=== PATIENT | female | born 1975 | race Caucasian/White ===

== ENCOUNTER 2017-08-07 08:19 | Emergency (ER) | payer MEDICAID ==
[~2017-08-07] VITALS: Ht 153.7 cm; Wt 74.4 kg
[2017-08-07 08:46] VITALS: BP 129/83
--- NOTE | 2017-08-07 08:52 | NUR ---
PT AA&OX4, EVEN AND STEADY GAIT; VSS; PT TO LOBBY AWAITING OPEN BED.
--- NOTE | 2017-08-07 11:02 | NUR ---
PATIENT BIB FAMILY C/O NAUSEA/VOMITING/DIARRHEA X YESTERDAY.SKIN IS PINK/WARM/DRY; AAOX4 WITH EVEN AND STEADY GAIT; LUNGS CLEAR BL; HR EVEN AND REGULAR; PT DENIES ANY FEVER, CP, SOB, OR COUGH AT THIS TIME; PATIENT STATES PAIN OF 10/10 AT THIS TIME;PATIENT POSITIONED FOR COMFORT; HOB ELEVATED; BEDRAILS UP X2; BED DOWN.ALL MONITORS IN PLACED; ER MD MADE AWARE OF PT STATUS.
--- NOTE | 2017-08-07 11:42 | NUR ---
PT SLEEPING AT THIS TIME;NO ACUTE DISTRESS NOTED;WILL CONTINUE TO MONITOR PT.
[2017-08-07] MEDS ORDERED: KETOROLAC 60 MG/2 ML VIAL IM ONE (12:15)
[2017-08-07] MEDS ORDERED: ONDANSETRON 4 MG ODT PO ONE (12:20)
[2017-08-07 13:21] VITALS: BP 111/73
--- NOTE | 2017-08-07 13:23 | NUR ---
Patient discharged with v/s stable. Written and verbal after care instructions given and explained. Patient alert, oriented and verbalized understanding of instructions. Ambulatory with steady gait. All questions addressed prior to discharge. ID band removed. Patient advised to follow up with PMD. Rx of IMMODIUM MOTRIN AND ZOFRAN given. Patient educated on indication of medication including possible reaction and side effects. Opportunity to ask questions provided and answered.
== END 2017-08-07 13:23 | disposition home or self-care (01) ==
LOC: MED 08:19
DX: R10.30 Lower abdominal pain, unspecified (principal); R11.2 Nausea with vomiting, unspecified; R19.7 Diarrhea, unspecified
CPT/HCPCS: 81002; 81025; 96372; 99283; J1885; S0119

== ENCOUNTER 2018-12-06 11:44 | Emergency (ER) | payer SELFPAY ==
[~2018-12-06] VITALS: Ht 152.4 cm; Wt 79.4 kg
[2018-12-06 12:38] VITALS: BP 158/65
--- NOTE | 2018-12-06 12:40 | NUR ---
ERMD AT BEDSIDE
--- NOTE | 2018-12-06 13:00 | NUR ---
C/O COUGH & SORE THROAT X 5 DAYS. PT DENIES N/V/D/FEVER. EXPIRATORY WHEEZES HEARD IN BILAT BASES. O2 SAT 100% RA, NO ACCESORY MUSCLE USE NOTED, BREATHING IS UNLABORED.SKIN IS PINK/WARM/DRY ALERT AND ANSWERING QUESTIONS APPROPRIATLY. HR EVEN AND REGULAR.
--- NOTE | 2018-12-06 13:05 | NUR ---
PT LEFT TO RADIOLOGY
--- NOTE | 2018-12-06 14:00 | NUR ---
DR QUESADA AT BEDSIDE
[2018-12-06] MEDS ORDERED: DEXAMETHASONE 10 MG/ML VIAL IM ONE (14:10)
[2018-12-06 14:30] VITALS: BP 102/66
--- NOTE | 2018-12-06 14:31 | NUR ---
Patient discharged with v/s stable. Written and verbal after care instructions given and explained. Patient alert, oriented and verbalized understanding of instructions. Ambulatory with steady gait. All questions addressed prior to discharge. ID band removed. Patient advised to follow up with PMD. Rx of ALBUTEROL, PREDNISONE, LORATADINE, AND TESSALON PERLES given. Patient educated on indication of medication including possible reaction and side effects. Opportunity to ask questions provided and answered.
== END 2018-12-06 14:31 | disposition home or self-care (01) ==
LOC: MED 11:44
DX: J40 Bronchitis, not specified as acute or chronic (principal); J30.9 Allergic rhinitis, unspecified
CPT/HCPCS: 71046; 81002; 81025; 96372; 99283; J1100

== ENCOUNTER 2022-04-29 18:21 | Emergency (ER) | payer SELFPAY ==
[~2022-04-29] VITALS: Ht 149.9 cm; Wt 67.6 kg
[2022-04-29 18:46] VITALS: BP 149/93
--- NOTE | 2022-04-29 19:01 | NUR ---
PT AMBULATED TO BED 05.
--- NOTE | 2022-04-29 19:24 | NUR ---
Report given to SILVIA Lyle for transfer of care.
--- NOTE | 2022-04-29 19:30 | NUR ---
Dr. Alvares examining patient.
[2022-04-29] MEDS ORDERED: NACL 0.9% 1,000 ML IV ONE ×2 (19:35)
[2022-04-29] MEDS ORDERED: KETOROLAC 30 MG/ML VIAL IVP ONE (19:35)
[2022-04-29] MEDS ORDERED: ONDANSETRON 4 MG/2 ML VIAL IVP ONE (19:35)
--- NOTE | 2022-04-29 19:36 | NUR ---
46/F BIB SELF C/C "PULSATING" LEFT TEMPORAL HEADACHE 10/10 S/P LEFT UPPER BACK TOOTH IMPLANT [id number]. PER PATIENT SHE HAS INFLAMMATION AND REDNESS IN THE AREA "I THINK ITS INFECTED". PATIENT HAS TAKEN TYL WITH MILD RELIEF, DENIES TAKING ANY TODAY. DENIES N/V/VISUAL CHANGES. PATIENT AAOX4 AND AMBULATORY. PMHX PRE DM, MENOPAUSE(CURRENTLY) NKA
--- NOTE | 2022-04-29 19:50 | NUR ---
IV ESTABLISHED 22G LEFT HAND . IVF INITIATED ORDERED.
[2022-04-29] MEDS ORDERED: IBUP-2213 PO (20:34)
[2022-04-29] MEDS ORDERED: ONDA-188 PO (20:34)
[2022-04-29] MEDS ORDERED: AMOX-1230 PO (20:35)
--- NOTE | 2022-04-29 20:40 | NUR ---
PATIETN AMBULATED TO RR. AND C/O / THROBBING HEAD PAIN
[2022-04-29] MEDS ORDERED: HYDROcodone/APAP 5/325 MG 1 TAB TAB PO ONE (20:45)
--- NOTE | 2022-04-29 21:40 | NUR ---
IV removed, catheter intact and site benign. Applied folded 4x4 gauze and tape to stop bleeding.
[2022-04-29 21:44] VITALS: BP 125/90
--- NOTE | 2022-04-29 21:44 | NUR ---
Patient discharged with v/s stable. Written and verbal after care instructions given MIGRAINE AND DENTAL ABSCESS and explained. Patient alert, oriented and verbalized understanding of instructions. Ambulatory with steady gait. All questions addressed prior to discharge. ID band removed. Patient advised to follow up with PMD. Rx of AMOXICILLIN/POTASSIUM CLAV, IBUPROFEN AND ZOFRAN given.
--- NOTE | 2022-04-29 21:59 | NUR ---
The patient's care was reviewed and supervised by Allison Thompson RN.
== END 2022-04-29 21:44 | disposition home or self-care (01) ==
LOC: MED 18:21
DX: K08.89 Other specified disorders of teeth and supporting structures (principal)
CPT/HCPCS: 96361; 96374; 96375; 99284; J1885; J2405; J7030

== ENCOUNTER 2022-06-19 20:33 | Emergency (ER) | payer SELFPAY ==
[~2022-06-19] VITALS: Ht 157.5 cm; Wt 74.4 kg
[~2022-06-19 20:33] MED LIST: AMOX-1230 PO; IBUP-2213 PO; ONDA-188 PO
[2022-06-19 21:15] VITALS: BP 130/86
--- NOTE | 2022-06-19 21:18 | NUR ---
TO LOBBY A/W BED AMBULATORY
--- NOTE | 2022-06-19 22:59 | NUR ---
Krys gomez in EDM - 06/19/22 at 2301 by [email or web address] PT 11 WEEKS OLD. C/O SORE THROUGHT AND COUGH. PT MOM REPORTED THAT PT TESTED POSITIVE FOR RSV VIRUS ON TUESDAY.
--- NOTE | 2022-06-19 23:07 | NUR ---
Patient being evaluated by physician Samuel at bedside.
[2022-06-19] MEDS ORDERED: PSEU120T22 PO (23:29)
[2022-06-19] MEDS ORDERED: IBUP-2213 PO (23:29)
[2022-06-19] MEDS ORDERED: PRED20TA5 PO (23:29)
== END 2022-06-19 23:42 | disposition home or self-care (01) ==
LOC: MED 20:33
DX: J06.9 Acute upper respiratory infection, unspecified (principal)
CPT/HCPCS: 99283

== ENCOUNTER 2023-06-20 10:49 | Emergency (ER) | payer MEDICAID ==
[~2023-06-20] VITALS: Ht 152.4 cm; Wt 78.5 kg
[~2023-06-20 10:49] MED LIST changes: +PRED20TA5 PO; +PSEU120T22 PO
[2023-06-20 11:25] VITALS: BP 128/87; PULSE 107; RESP 20; TEMP 98.1; O2SAT 98
[2023-06-20] MEDS ORDERED: IBUP-2213 PO (13:08)
[2023-06-20] MEDS ORDERED: PROM118S5 PO (13:08)
[2023-06-20] MEDS ORDERED: CETI10CA6 PO (13:08)
[2023-06-20] MEDS ORDERED: IBUPROFEN 600 MG TAB PO ONE (13:15)
[2023-06-20 13:19] VITALS: BP 133/65; PULSE 77; RESP 18; TEMP 98; O2SAT 99
[2023-06-20 14:01] LABS: FLU A ANTIGEN negative (NEGATIVE); FLU B ANTIGEN NEGATIVE (NEGATIVE)
== END 2023-06-20 13:20 | disposition home or self-care (01) ==
LOC: MED 10:49
DX: J06.9 Acute upper respiratory infection, unspecified (principal); Z20.822 Contact with and (suspected) exposure to COVID-19; I10 Essential (primary) hypertension; Z79.899 Other long term (current) drug therapy
CPT/HCPCS: 71046; 99284

== ENCOUNTER 2023-10-11 17:20 | Emergency (ER) | payer SELFPAY ==
[~2023-10-11] VITALS: Ht 152.4 cm; Wt 79.8 kg
[~2023-10-11 17:20] MED LIST changes: +CETI10CA6 PO; +PROM118S5 PO
[2023-10-11 17:29] VITALS: BP 136/85; PULSE 105; RESP 18; TEMP 98.4; O2SAT 96
[2023-10-11 17:59] LABS: APPEARANCE,URINE SL CLOUDY (CLEAR); BILIRUBIN,URINE NEGATIVE (NEGATIVE); BLOOD, URINE NEGATIVE (NEGATIVE); COLOR,URINE YELLOW (YELLOW); LEUKOCYTE ESTERASE ,URINE NEGATIVE (NEGATIVE); NITRITE, URINE NEGATIVE (NEGATIVE); PROTEIN,URINE 1+ (NEGATIVE); UGLUCOSE NEGATIVE (NEGATIVE); UROBILINOGEN,URINE 0.2 EU/dL (0.2 - 1)
[2023-10-11 18:11] LABS: BACTERIA,URINE 1+ /HPF (None Seen); RBC,URINE 0-5 /HPF (0-5); WBC,URINE 0 /HPF (0-5)
[2023-10-11 18:12] LABS: MUCUS,URINE None Seen /LPF (None Seen); SQUAMOUS EPITHELIAL CELL,UR 0-3 (FEW) /LPF (0-3 (FEW))
[2023-10-11 18:17] LABS: BASOPHILS % (AUTO) 0.3 % (0.0-2.0); EOSINOPHILS # (AUTO) 0.1 K/uL (0-0.4); EOSINOPHILS % (AUTO) 0.8 % (0.0-4.0); HEMATOCRIT 42.9 % (36-48); HEMOGLOBIN 14.7 g/dL (12.0-16.0); LYMPHOCYTES # (AUTO) 1.1 K/uL (2.5-16.5); LYMPHOCYTES % (AUTO) 10.2 % (20.5-51.1); MEAN CORPUSCULAR HEMOGLOBIN 28 pg (27-31); MEAN CORPUSCULAR HGB CONC 34 g/dL (33-37); MEAN CORPUSCULAR VOLUME 81.1 fL (80-94); MONOCYTES # (AUTO) 0.3 K/uL (0.8-1.0); MONOCYTES % (AUTO) 3.2 % (1.7-9.3); NEUTROPHILS % (AUTO) 85.5 % (42.2-75.2); PLATELET COUNT (AUTO) 179 K/uL (140-450); RED BLOOD CELL COUNT(AUTO) 5.29 MIL/uL (4.20-5.40); RED CELL DISTRIBUTION WIDTH 13.6 % (11.6-13.7); WHITE BLOOD COUNT (AUTO) 10.6 K/uL (4.8-10.8)
[2023-10-11 18:32] LABS: ANION GAP 10.2 (8-16); CALCIUM 8.7 mg/dL (8.5-10.1); CARBON DIOXIDE 29.7 mmol/L (21-32); CREATININE 0.8 mg/dL (0.6-1.3); POTASSIUM 3.9 mmol/L (3.5-5.1)
[2023-10-11 18:39] LABS: ALBUMIN 3.9 g/dL (3.4-5.0); BILIRUBIN,DIRECT 0.1 mg/dL (0.0-0.3); TOTAL BILIRUBIN 0.8 mg/dL (0.0-1.0); TOTAL PROTEIN, SERUM 8.7 g/dL (6.4-8.2)
[2023-10-11 18:48] VITALS: BP 136/85; PULSE 105; RESP 18; TEMP 98.4; O2SAT 96
[2023-10-11] MEDS ORDERED: ACET-10509 PO (19:01)
[2023-10-11] MEDS ORDERED: ONDA-188 SL (19:01)
[2023-10-11] MEDS: ONDANSETRON 4 MG ODT PO ONE (19:03)
[2023-10-11] MEDS: ACETAMINOPHEN EXTRA STRENGTH 500 MG TAB PO ONE (19:03)
== END 2023-10-11 19:15 | disposition home or self-care (01) ==
LOC: MED 17:20
DX: R10.12 Left upper quadrant pain (principal); R11.2 Nausea with vomiting, unspecified; R19.7 Diarrhea, unspecified; I10 Essential (primary) hypertension; Z79.899 Other long term (current) drug therapy
CPT/HCPCS: 36415; 80048; 80076; 81001; 81025; 83690; 85025; 99283; Q0162